=== PATIENT | female | born 1970 | race Caucasian/White ===

== ENCOUNTER 2016-08-03 05:30 | Inpatient (IN) | payer OTHER ==
[2016-08-03] VITALS (11 sets, daily range): BP systolic 110–181; BP diastolic 59–91; Ht 152.4 cm; Wt 74.5 kg
[~2016-08-03] VITALS: Ht 152.4 cm; Wt 74.5 kg
[~2016-08-03 05:30] MED LIST: MULTIPLE VITAMI1 TA1 PO; TYLENOL W/CODEI1 TAB PO
[2016-08-03 06:42] LABS: HCG URINE NEGATIVE (NEGATIVE)
[2016-08-03 07:03] LABS: CALC OSMOLALITY 284 mosm/kg (275-300); CALCIUM 8.8 mg/dL (8.5-10.1); CARBON DIOXIDE 28.7 mmol/L (21.0-32.0); CHLORIDE - SERUM 108 mmol/L (98-107); CREATININE - SERUM 0.7 mg/dL (0.6-1.3); GLUCOSE 100 mg/dL (74-106); POTASSIUM - SERUM 3.8 mmol/L (3.5-5.1); SODIUM 144 mmol/L (136-145); UREA NITROGEN 8 mg/dL (7-18); eGFR NON AFRICAN AMERICAN > 90 mL/min (90-120)
[2016-08-03 08:01] LABS: BASOPHILS 0.2 % (0.0-2.0); EOSINOPHILS 1.7 % (0-7); HEMATOCRIT 41.2 % (36.0-48.0); IMMATURE GRANULOCYTES 0.2 % (0-5); MCH 31.5 pg (26.0-34.0); MCV 92.8 fL (80.0-100.0); MEAN PLATELET VOLUME 10.6 fL (7.4-10.4); MONOCYTES 10.4 % (2-11); NEUTROPHILS 59.5 % (40-80); PLATELET COUNT 198 10x3/uL (130-400); RBC 4.44 10x6/uL (4.00-5.40); RDW 13.4 % (11.5-14.5); WBC 5.8 10x3/uL (4.8-10.8)
--- NOTE | 2016-08-03 08:40 | HP ---
PATIENT: DIVYA PHILLIPS MEDICAL RECORD: [id number] ACCOUNT: [id number] LOCATION:[facility] [place] : 68 ADMISSION DATE: 08/03/16 HISTORY AND PHYSICAL EXAMINATION HISTORY OF PRESENT ILLNESS: This patient is a 45-year-old 1, para 1 female with pelvic pain, myomas increasing in size, irregular bleeding. She has had a benign endometrial biopsy. She desires hysterectomy for treatment of these symptoms and ovarian preservation if possible. MEDICAL HISTORY: ALLERGIES: None known. CURRENT MEDICATIONS: She takes Tylenol with codeine for pain, ketorolac, oxycodone and Phenergan. PREVIOUS SURGERIES: Include colposcopy. She has a history of a Pap smear negative in 2016 in May. REVIEW OF SYSTEMS: No chest pain, no dyspnea. Positive for increasingly severe lower abdominal and pelvic pain. Denies heart disease, diabetes, hypertension. FAMILY HISTORY: Positive for lung cancer. SOCIAL HISTORY: The patient is . No ethanol use. Nonsmoker. PHYSICAL EXAMINATION: VITAL SIGNS: Weight is 167 pounds, blood pressure 140/76. HEENT: Unremarkable. LUNGS: Clear. HEART: Regular rate and rhythm. ABDOMEN: Soft, tenderness throughout. PELVIC: Examination is current and deferred for anesthesia. EXTREMITIES: No cyanosis, clubbing or edema. NEUROLOGICAL: Grossly intact. DIAGNOSTIC AND LABORATORY DATA: Pelvic ultrasound reveals a 9 cm uterine length, uterine myoma of 5 cm compared with the 3.7 cm measurement previously. Ovaries are within normal limits by size with cystic changes. She has an endometrial biopsy that is negative. Cervical cultures that are negative. Normal CBC and PTT and TSH. IMPRESSION: Pelvic pain, myomas increasing in size, irregular bleeding with negative biopsy. PLAN: The patient desires hysterectomy with ovarian preservation if possible. I have discussed the plan procedure with her and her and discussed the potential complications in detail including anesthetic complications, infection, bleeding during or after surgery, injury to other organs, second operation to repair problems. All questions answered. TRANSINT:[id number] Voice Confirmation ID: [id number] DOCUMENT ID: [id number] HISTORY AND PHYSICAL [id number] JACQUELINEGENARO PerezDIVYA DIVYA HARP MD at 0840 CC: [id number] DICTATION DATE: 08/02/16 1314 MANUFACTURING INTERN: 08/02/16 1445 ADM IN [facility] [address] [facility] [address]
--- NOTE | 2016-08-03 11:33 | NUR ---
DR HANEY GAVE VERBAL ORDER TO REPLACE PRYOR CATHETER.
--- NOTE | 2016-08-03 11:46 | NUR ---
PRYOR CATHETER PLACED AT BEDSIDE IN PACU.
--- NOTE | 2016-08-03 11:55 | NUR ---
VERBAL ORDER FROM DR HANEY FOR BOLUS OF 500ML NS
--- NOTE | 2016-08-03 12:30 | NUR ---
PT WAS RECEIVED FROM RECOVERY ROOM S/P TOTAL ABDOMINAL HYST. SHE WAS TRANSFERRED TO THE BED FROM STRETCHER. SHE DID WELL MOVING. HER IV IS NOTED IN HER R HAND AND IS PATENT WITH NS BOLUS INFUSING. 500 ML. PRYOR CATH INTACT WITH BLUISH GREEN URINE NOTED. SCD'S INTACT AND INITIATED. GEN- AWAKE AND ALERT. LUNGS- CLEAR. HEART- RRR. ABD- SOFT WITH TENDERNESS. BIKINI LINE INCISION WITH STERI STRIPS NOTED. CLEAN , DRY AND INTACT. LE WARM AND DRY AND PULSE PALPABLE. SCD'S INTACT. BED IS LOW, SIDE RAILS UP X 2. CALL LIGHT IN REACH.
--- NOTE | 2016-08-03 13:41 | NUR ---
PT IS RESTING IN BED. STATES SHE FEELS LIKE SHE NEEDS TO GO TO BATHROOM TO VOID. PRYOR CHECKED. OUTPUT 125 CC GRENNISH COLORED URINE. PAIN IS IMPROVING. BED IS LOW. CALL LIGHT IN REACH AND SIDE RAILS UP X 2.
--- NOTE | 2016-08-03 15:52 | NUR ---
PT IS DOING WELL. STILL WITH SOME PAIN. BUT PAIN HAS IMPROVED WITH WOOD CAULKER. AT BEDSIDE. NO BLEEDING NOTED. PRYOR INTACT. ICE PACK REFILLED AND PLACED OVER INCISION. PRYOR PATENT. IV PATENT R HAND.
--- NOTE | 2016-08-03 16:11 | NUR ---
PT WAS GIVEN TORADOL IV DILUTED WITH NS. PT STATES HER PAIN IS A 6. BED IS LOW. SIDE RAILS ARE UP AND CALL LIGHT IS IN REACH.
--- NOTE | 2016-08-03 19:40 | NUR ---
PT RECEIVED LYING IN BED ON BACK AWAKE AND ALERT. VSS. RATES PAIN 8/10. IV NOTED TO RIGHT HAND. INFUSING D5LR @ 125 WITH DEMEROL DELIVERY ARCHITECT. PATENT. DRESSSING CDI. HEART RRR. LUNG SOUNDS CLEAR BILATERALLY. BOWEL SOUNDS ACTIVE X4 QUAD. ABD SOFT WITH TENDERNESS. NO LOCHIA NOTED TO MASHA PAD. PRYOR ATTACHED TO RIGHT THIGH. DRAINING. METHYLENE BLUE IN URINE. SCDS NOTED TO BLE. PT REQUESTS POPSICLE AT THIS TIME. DENIES OTHER NEEDS. BED LOW. PHONE AND CALL LIGHT IN REACH. SRX2.
--- NOTE | 2016-08-03 20:56 | NUR ---
PT REQUESTS POPSICLE AT THIS TIME. DENIES OTHER NEEDS. BED LOW. PHONE AND CALL LIGHT IN REACH. SRX2.
--- NOTE | 2016-08-03 21:28 | NUR ---
PT LYING IN BED WITH FAMILY AT BEDSIDE. REQUESTS ICE CHIPS AT THIS TIME. DENIES OTHER NEEDS. BED LOW. PHONE AND CALL LIGHT IN REACH. SRX2.
--- NOTE | 2016-08-03 21:55 | NUR ---
PT BARREL PLATER LIGHT, ASSISTED PT IN REPOSITIONING IN BED, REMOVED BLUE CHUX AND TOWEL FOR COMFORT, NO VAG BLEEDING NOTED, SCD'S CONTINUE ON AND WORKING PROPERLY, PT DENIES FURTHER NEEDS, PT'S DAUGHTER AT BEDSIDE
--- NOTE | 2016-08-03 22:09 | NUR ---
CHANGED PT DIGITAL MARKETER OUT. PT RATES PAIN 12/19. DENIES OTHER NEEDS AT THIS TIME. BED LOW. PHONE AND CALL LIGHT IN REACH. SRX2.
--- NOTE | 2016-08-03 23:09 | NUR ---
PT LYING IN BED. REQUESTS LIGHT TURNED OFF. DENIES OTHER NEEDS AT THIS TIME. BED LOW. PHONE AND CALL LIGHT IN REACH. SRX2.
[2016-08-04 00:15] VITALS: BP 114/62
--- NOTE | 2016-08-04 00:15 | NUR ---
PT LYING IN BED RESTING QUIETLY WITH EYES CLOSED. AROUSED EASILY. NO LOCHIA NOTED TO PAD UNDER PT. EMPTIED 1450 CC FROM PRYOR. PT RATES PAIN 5/10. REQUESTS ICE CHIPS AND POPSICLE AT THIS TIME. DENIES OTHER NEEDS. BED LOW. PHONE AND CALLL LIGHT IN REACH. SRX2.
--- NOTE | 2016-08-04 01:50 | NUR ---
PT RESTING QUIETLY WITH EYES CLOSED, AROUSED EASILY. DENIES NEEDS AT THIS TIME. BED LOW. PHONE AND CALL LIGHT IN REACH. SRX2.
--- NOTE | 2016-08-04 02:09 | NUR ---
PT RESTING QUIETLY AT THIS TIME. DENIES NEEDS. BED LOW. PHONE AND CALL LIGHT IN REACH. SRX2.
--- NOTE | 2016-08-04 03:20 | NUR ---
PT RESTING QUIETLY. REQUESTS POPSICLE AT THIS TIME. DENIES OTHER NEEDS. BED LOW. PHONE AND CALL LIGHT IN REACH. SRX2.
[2016-08-04 03:53] VITALS: BP 128/76
--- NOTE | 2016-08-04 03:53 | NUR ---
PT RESTING QUIETLY. EMPTIED 600 CC FROM PRYOR. CLEARED IV. PT RATES PAIN 01/19. ADMINISTERED TORADOL IVP. VSS. PT REQUESTS POPSICLE AT THIS TIME. BED LOW. PHONE AND CALL LIGHT IN REACH. SRX2. DENIES FURTHER NEEDS.
--- NOTE | 2016-08-04 05:52 | NUR ---
PT RESTING QUIETLY WITH EYES CLOSED. REASSESSED PTS PAIN. RATES PAIN /10. REQUESTS ICE AT THIS TIME. DENIES OTHER NEEDS. BED LOW. PHONE AND CALL LIGHT IN REACH. SRX2.
--- NOTE | 2016-08-04 07:40 | OP ---
PATIENT NAME: CHRISTIE PHILLIPS MEDICAL RECORD: [id number] :68 LOCATION:[facility] ADMISSION DATE:08/03/16 SURGEON: CHRISTIE HANEY MD DATE OF OPERATION: 08/03/2016 PREOPERATIVE DIAGNOSES: Pelvic pain, menorrhagia and myomas. POSTOPERATIVE DIAGNOSES: Pelvic pain, menorrhagia and myomas. PROCEDURE: Total abdominal hysterectomy and bilateral salpingectomy. SURGEON: Christie Haney MD ANESTHESIA: General. FINDINGS: A 10-week size myomatous uterus. Normal appearing ovaries, normal appearing tubes, status post ligation. A large myoma was located posteriorly in the fundus of the uterus. ESTIMATED BLOOD LOSS: 250 cc. COMPLICATIONS OF SURGERY: None. OPERATIVE NOTE: The patient was taken to the OR and under adequate general anesthesia, prepped and draped in the usual manner for abdominal procedures. A transverse incision was made in the lower abdomen and extended through subcutaneous tissue and fascia, dividing muscles in the midline in a Pfannenstiel manner. Peritoneum was then elevated and incised and this incision extended from the symphysis pubis to within 4 cm of the umbilicus, avoiding the bladder and abdominal organ. A retractors were placed, O'Duane-O'Noland in order to allow full visualization of the pelvic contents. An area of the bladder was noted to be thin as the Najera catheter could be identified. Najera catheter was intact and draining. After packing the bowel out of the operative field, the round ligaments on the right and left were ligated using Mariel clamps, #1 chromic suture. The uteroovarian ligaments were then ligated along with fallopian tubes on the right and left using Mariel clamps, #1 chromic suture. At this time, the bladder was advanced anteriorly over the lower uterine segment and cervix using blunt and sharp dissection. The uterine vessels on the right and left were ligated using Mariel clamps and #1 chromic suture. Hemostasis was maintained. The right tube and left tube were then removed using electrocautery without difficulty or complication. The uterine fundus was then amputated using electrocautery in order to obtain easier access to the cervix. The bladder was bluntly dissected over the cervix. Cardinal ligaments were progressively ligated on the right and left using Mariel clamps and #1 chromic suture. The cervical stump was amputated after placement of Mariel clamps across the vaginal angles and cervix was then removed. All pedicles were made hemostatic using U configuration, #1 chromic sutures at the vaginal angles and [id number], #1 chromic sutures at the vaginal apex. The pelvis was copiously irrigated and suctioned. Methylene blue had been used early in the case transvenously in order to maintain and confirm integrity of the urinary tract. There was no spillage in the abdomen. The bladder was carefully inspected. There was no leakage of dye into the pelvic area or the abdomen. An area of thinning along the fundus of the bladder was reinforced with a 2-0 chromic [id number]-ajrht suture. Sponge and needle counts were correct. The fascial layer was closed in a running noninterlocking #1 PDS loop OPERATIVE REPORT [id number] CHRISTIE PHILLIPS. Skin incision reapproximated in 2 layers, first layer a running 2-0 plain gut suture. Skin layer with a running 2-0 subcuticular suture. Dermabond was applied, a Steri-Strip dressing was applied and the patient went to recovery area in good condition. TRANSINT:[id number] Voice Confirmation ID: [id number] DOCUMENT ID: [id number] CHRISTIE HANEY MD at 0740 CC: [id number] DICTATION DATE: 08/03/16 1152 LEGAL EXAMINER: 08/03/16 1506 ADM IN [facility] [id number] [place] [address]
[2016-08-04 07:45] VITALS: BP 113/70
[2016-08-04 07:59] LABS: HEMATOCRIT 34.2 % (36.0-48.0); HEMOGLOBIN 11.5 g/dL (12-16); MCHC 33.6 g/dL (31.0-37.0); MCV 92.2 fL (80.0-100.0); RBC 3.71 10x6/uL (4.00-5.40)
[2016-08-04 08:08] LABS: WBC 10.3 10x3/uL (4.8-10.8)
--- NOTE | 2016-08-04 09:00 | NUR ---
PTS IV R HAND WAS SALINE LOCKED. PATENT. KONSTANTIN WAS D'CD. PT REQUESTED TO GET UP TO BATHROOM. GOT HER UP BUT SHE WAS UNABLE TO VOID. PT BACK TO BED. REQUESTED PAIN MED. GIVEN. WAS GOING TO GIVE NICODERM PATCH ORDERED. PT REFUSED BECAUSE SHE DOES NOT SMOKE.
--- NOTE | 2016-08-04 10:31 | NUR ---
PT IS RESTING IN BED WITH EYES CLOSED. NO COMPLAINTS.
--- NOTE | 2016-08-04 11:14 | NUR ---
PT IS UP TO BATHROOM TO VOID. VOIDED 300 CC LIGHT GREEN URINE. PT IS STILL HAVING PAIN AND REQUESTED PAIN MED. HAD PAIN MED 2 HRS AGO. REQUEST I CALL DR HANEY FOR SOMETHING ELSE.
--- NOTE | 2016-08-04 12:23 | NUR ---
CALLED DR HANEY AND REQUESTED DIFFERENT PAIN MED. SHE ORDERED DEMEROL 50-100 PO Q 4H PRN AND PHENERGAN 25 MG IM PRN Q 4H.
--- NOTE | 2016-08-04 12:34 | NUR ---
PT'S PAIN LEVEL IS A 7 SHE STATES. DEMEROL 590 MG GIVEN PO.
--- NOTE | 2016-08-04 13:30 | NUR ---
PT UP TO TAKE A SHOWER. TOLERATED WELL. THEN PT AMBULATED IN THE HALLWAY TO NURSERY AND BACK. HER DAUGHTER IS AT BEDSIDE.
--- NOTE | 2016-08-04 14:56 | NUR ---
PT C/O OF HER PAIN BEING AN 8. SHE REQUESTED MORE PAIN MEDICATION. GAVE ANOTHER DEMEROL 50 MG PO.
--- NOTE | 2016-08-04 16:16 | NUR ---
PT VOIDED AGAIN 300 CC LIGHT GREEN URINE.
[2016-08-04 19:48] VITALS: BP 127/78
--- NOTE | 2016-08-04 19:48 | NUR ---
PT RECEIVED LYING IN BED WITH SPOUSE AT BEDSIDE. VSS. PT RATES PAIN 10/10. ADMINISTERED 100 MG DEMEROL PO AT THIS TIME. S/L NOTED TO RIGHT HAND. DRESSING CDI. HEART RRR. LUNG SOUNDS CLEAR BILATERALLY. BOWEL SOUNDS ACTIVE X4 QUAD. LOW TRANSVERSE INCISION NOTED TO ABDOMEN WITH STERI STRIPS. CDI. ABDOMEN SOFT WITH TENDERNESS. SCDS NOTED TO BLE. NO LOCHIA NOTED TO PAD UNDER PT. PT STATES SHE HAS HAD SCANT BLEEDING. DENIES NEEDS AT THIS TIME. BED LOW. PHONE AND CALL LIGHT IN REACH. SRX2.
--- NOTE | 2016-08-04 20:40 | NUR ---
PT STATES PAIN IS NOT IMPROVING AT THIS TIME. STATES IT FEELS LIKE SHARP PAINS THAT COME AND GO. WILL ADMINISTER PHENERGAN IM AND CONTINUE TO MONITOR.
--- NOTE | 2016-08-04 21:19 | NUR ---
PT RATES PAIN 03/21. STATES DEMEROL HAS NOT HELPED ANY. ADMINISTERED PHENERGAN IM. PT DENIES OTHER NEEDS AT THIS TIME. BED LOW. PHONE AND CALL LIGHT IN REACH. SRX2.
--- NOTE | 2016-08-04 22:24 | NUR ---
REASSESSED PT'S PAIN. RATES PAIN 4/10. STATES IT HAS IMPROVED. DENIES NEEDS AT THIS TIME. BED LOW. PHONE AND CALL LIGHT IN REACH. SRX2.
[2016-08-04 23:35] VITALS: BP 135/84
--- NOTE | 2016-08-04 23:35 | NUR ---
PT RESTING QUIETLY WITH EYES CLOSED. AROUSED EASILY. VSS. DENIES NEEDS AT THIS TIME. BED LOW. PHONE AND CALL LIGHT IN REACH. SRX2.
--- NOTE | 2016-08-05 01:38 | NUR ---
PT REQUESTS MEDICATION FOR PAIN 01/19 AT THIS TIME. ADMINISTERED DEMEROL 100 MG PO. PT DENIES OTHER NEEDS. BED LOW. PHONE AND CALL LIGHT IN REACH. SRX2.
--- NOTE | 2016-08-05 02:24 | NUR ---
REASSESSED PTS PAIN. RATES PAIN 6/10. STATES IT HAS IMPROVED. DENIES NEEDS.
[2016-08-05 03:31] VITALS: BP 132/69
--- NOTE | 2016-08-05 03:31 | NUR ---
PT RESTING QUIETLY AT THIS TIME. AROUSED EASILY. RATES PAIN 10/19. BP-132/69. 02-94% P-100. PT DENIES NEEDS AT THIS TIME. BED LOW. PHONE AND CALL LIGHT IN REACH. SRX2.
--- NOTE | 2016-08-05 05:04 | NUR ---
PT RESTING QUIETLY AT THIS TIME. AROUSED EASILY. DENIES NEEDS. BED LOW. PHONE AND CALL LIGHT IN REACH. SRX2.
--- NOTE | 2016-08-05 07:20 | NUR ---
AM ASSESSMENT COMPLETE AT THIS TIME. SEE ASSESSMENT FORM. NO SIGNS OF DISTRESS NOTED. AT BEDSIDE.
[2016-08-05 07:30] VITALS: BP 141/90
--- NOTE | 2016-08-05 08:43 | NUR ---
PATIENT C/O PAIN. PATIENT RATES PAIN 7 OUT OF 10. PRN PAIN MEDICATION ADMINISTERED AT THIS TIME.
--- NOTE | 2016-08-05 09:15 | NUR ---
PATIENT RATES PAIN RELIEF 3 OUT OF 10. NO SIGNS OF DISTRESS NOTED.
--- NOTE | 2016-08-05 09:15 | NUR ---
PT BACK FROM AMBULATING UNIT WITH AT SIDE. MADE COMFORTABLE IN BED AND ADMINISTERED DUCOLAX ORDERED. ASKED PT TO INFORM THIS NURSE IF SHE IS ABLE TO PASS GAS AND WHEN SHE HAS A BOWEL MOVEMENT.
--- NOTE | 2016-08-05 11:00 | NUR ---
PATIENT RESTING QUIETLY. NO SIGNS OF DISTRESS NOTED.
--- NOTE | 2016-08-05 11:45 | NUR ---
TO ROOM AT CALL LIGHT REQUEST. PT HAD A LARGE BOWEL MOVEMENT BROWN, FIRM. STATES 'I FEEL SO MUCH BETTER'. STATES NO OTHER NEEDS AT THIS TIME.
--- NOTE | 2016-08-05 12:15 | NUR ---
PATIENT EATING LUNCH. AT BEDSIDE. NO SIGNS OF DISTRESS NOTED.
--- NOTE | 2016-08-05 12:58 | NUR ---
Pt awake and alert with eyes open. SL to right hand with sight clear. Color WNL and skin warm and dry to touch. Pain "not that bad" rated 3 on 0-10 pain scale. Denies vomiting at this time. Ate a little for lunch and breakfast.
--- NOTE | 2016-08-05 13:07 | NUR ---
PATIENT STATES PAIN 8 OUT OF 10. PRN PAIN MEDICATION ADMINISTERED AT THIS TIME.
--- NOTE | 2016-08-05 13:40 | NUR ---
PATIENT STATES PAIN RELIEF 3 OUT OF 10. NO SIGNS OF DISTRESS NOTED.
--- NOTE | 2016-08-05 13:50 | NUR ---
PT SITTING IN BED WITH AT BEDSIDE. DISCHARGE TEACHING WAS PROVIDED ALONG WITH PRESCRIPTIONS ORDERED. APPOINTMENT TIME AND DATE WAS GIVEN WITH UNDERSTANDING STATED ABOUT ALL INSTRUCTIONS. ALL BELONGINGS WERE REMOVED FROM ROOM AND WHEELCHAIR WAS CALLED FOR. PATIENT SMILING AND STATES EVERYONE HAS TREATED HER SO WELL.
--- NOTE | 2016-08-05 14:00 | NUR ---
PT DISCHARGED VIA WHEELCHAIR.
== END 2016-08-05 14:00 | disposition home or self-care (01) | DRG 743 ==
LOC: D.WS 05:30 → D.SDCHOLD 05:30 → D.WS 11:08
PROVIDERS: ADMIT Obstetrics & Gynecology
PROC: 0UTC0ZZ Resection of Cervix, Open Approach (ICD-10-PCS; 2016-08-03)
PROC: 0UT70ZZ Resection of Bilateral Fallopian Tubes, Open Approach (ICD-10-PCS; 2016-08-03)
PROC: 0UT90ZZ Resection of Uterus, Open Approach (ICD-10-PCS; principal; 2016-08-03 08:30)
DX: D25.9 Leiomyoma of uterus, unspecified (principal); N92.0 Excessive and frequent menstruation with regular cycle

== ENCOUNTER → 2017-03-22 16:59 | Outpatient (CLI) | payer OTHER ==
[2016-08-03 16:20] VITALS: BMI 32.0
== END | disposition home or self-care (01) ==
LOC: D.CT 16:59
DX: R10.32 Left lower quadrant pain (principal); N93.9 Abnormal uterine and vaginal bleeding, unspecified

== ENCOUNTER → 2017-03-30 11:39 | Outpatient (CLI) | payer OTHER ==
[2016-08-03 16:20] VITALS: BMI 32.0
== END | disposition home or self-care (01) ==
LOC: D.US 11:39
DX: R10.2 Pelvic and perineal pain (principal)